=== PATIENT | female | born 1985 | race Caucasian/White ===

== ENCOUNTER 2018-11-03 15:09 | Emergency (ER) | payer MEDICARE, MEDICAID ==
[2018-11-03] MEDS ORDERED: Lidocaine 1% PF 5 ML VIAL ONE (15:27)
[2018-11-03] MEDS ORDERED: cefTRIAXone\\ROCEPHIN 250 MG VIAL ONE (15:27)
[2018-11-03] MEDS ORDERED: Azithromycin 250 MG TAB ONE (15:27)
[2018-11-03 15:48] LABS: Bilirubin Negative (Negative); Blood, Urine Moderate (Negative); Clarity CLEAR (Clear); Glucose, Urine (Dipstick) Negative (Negative); Leukocyte Negative (Negative); Nitrite Negative (Negative); Protein, Urine (Dipstick) Negative (Neg-Trace); Specific Gravity, Urine 1.015 (1.002-1.036); Urobilinogen 0.2 mg/dL (0.2-1.0)
[2018-11-03 15:50] LABS: Bacteria/HPF Rare-Few HPF (None Seen); Hyaline Casts/LPF 0-3 HYALINE CAST LPF (0-3 Hyaline); Pathc Cast-AUWi Flag 0.54 (0-2.49); RBC/HPF 0-3 HPF (0-3); WBC/HPF 0-3 HPF (0-3)
[2018-11-06 00:59] LABS: Chlam.trachomatis by PCR,Urine Not Detected (NotDetected)
== END 2018-11-03 15:50 | disposition home or self-care (01) ==
LOC: ERS 15:09
DX: Z20.2 Contact with and (suspected) exposure to infections with a predominantly sexual mode of transmission (principal); F25.9 Schizoaffective disorder, unspecified; F41.9 Anxiety disorder, unspecified; F17.210 Nicotine dependence, cigarettes, uncomplicated; J45.909 Unspecified asthma, uncomplicated
CPT/HCPCS: 81003; 81015; 87491; 87591; 96372; J0696; J2001

== ENCOUNTER 2019-07-09 10:49 | Emergency (ER) | payer MEDICARE, MEDICAID | END 2019-07-09 12:22 | disposition home or self-care (01) | LOC: ERS 10:49 | DX: S16.1XXA Strain of muscle, fascia and tendon at neck level, initial encounter (principal); S29.012A Strain of muscle and tendon of back wall of thorax, initial encounter; F41.9 Anxiety disorder, unspecified; J45.909 Unspecified asthma, uncomplicated; F31.9 Bipolar disorder, unspecified; F17.210 Nicotine dependence, cigarettes, uncomplicated; V73.6XXA Passenger on bus injured in collision with car, pick-up truck or van in traffic accident, initial encounter; Z79.899 Other long term (current) drug therapy | CPT/HCPCS: 99283 ==

== ENCOUNTER 2019-08-03 07:47 | Emergency (ER) | payer MEDICARE, MEDICAID ==
[2019-08-03] MEDS ORDERED: Acetaminophen 500 MG TAB ONE (09:00)
[2019-08-03] MEDS ORDERED: Diazepam 5 MG TAB ONE (09:02)
--- NOTE | 2019-08-03 11:46 | RAD ---
CERVICAL SPINE THREE VIEWS: HISTORY: Neck pain following an injury at the end of June. FINDINGS: C6, C7 and T1 are obscured on the lateral view. Portions of the C1 and C2 odontoid are obscured on th e AP open-mouth view. No prevertebral soft tissue swelling. No malalignment. IMPRESSION: Limited evaluation of the cervical spine, as above. No significant abnormality in the visualized cerv ical spine. Given neck pain and radiation pain to left shoulder, follow-up non-emergent MRI examination should be considered. POS: [facility]
--- NOTE | 2019-08-03 11:47 | RAD ---
CHEST ONE VIEW PORTABLE: HISTORY: Chest pain following injury at the end of June. COMPARISON: 08/03/2014 FINDINGS: Heart size is normal. Lungs are clear. IMPRESSION: No significant acute intrathoracic disease. POS: [facility]
== END 2019-08-03 09:53 | disposition home or self-care (01) ==
LOC: ERS 07:47
DX: S46.812A Strain of other muscles, fascia and tendons at shoulder and upper arm level, left arm, initial encounter (principal); J45.909 Unspecified asthma, uncomplicated; F41.9 Anxiety disorder, unspecified; F31.9 Bipolar disorder, unspecified; F25.9 Schizoaffective disorder, unspecified; F17.210 Nicotine dependence, cigarettes, uncomplicated; Z79.899 Other long term (current) drug therapy; V49.9XXA Car occupant (driver) (passenger) injured in unspecified traffic accident, initial encounter
CPT/HCPCS: 71045; 72040

== ENCOUNTER 2021-12-13 11:43 | Emergency (ER) | payer MEDICARE, MEDICAID ==
[2021-12-13] MEDS ORDERED: Famotidine/PF 20 mg/2ml Vial ONE (12:22)
[2021-12-13] MEDS ORDERED: diphenhydrAMINE 50 MG/ML VIAL ONE (12:22)
[2021-12-13] MEDS ORDERED: methylPREDNISolone Sod Succ/PF 125 MG/2 ML VIAL ONE (12:22)
[2021-12-13 12:59] LABS: #Eosinphils 0.1 thou/uL (0.0-0.7); #Lymphocytes 1.4 thou/uL (1.20-3.40); #Monocytes 0.3 thou/uL (0.11-0.59); #Neutrophils 13.2 thou/uL (1.40-6.50); %Basophils 0.1 % (0.0-1.0); %Eosinophils 0.4 % (0.0-10.0); %Lymphocytes 9.3 % (21.0-51.0); %Monocytes 2.2 % (0.0-10.0); Hemoglobin 15.4 g/dL (12.0-16.0); Mean Corpuscular HGB CONC 35.3 g/dL (32.0-36.0); Mean Corpuscular Hemoglobin 35.8 pg (27.0-31.0); Mean Platelet Volume 8.7 fL (7.4-10.4); Platelet Count 197 thou/uL (130-400); RBC Distribution Width 11.3 % (11.5-14.5); Red Blood Cell (RBC) Count 4.31 mill/uL (4.20-5.40)
[2021-12-13 13:10] LABS: BHCG - Serum Negative (NEGATIVE); Pregs Control Background? CLEAR/WHITE (CLR/WHITE); Pregs Control Bar Appear? YES (CONTROL BAR)
[2021-12-13 13:21] LABS: ALT (SGPT) 10 U/L (8-55); AST (SGOT) 14 U/L (5-34); Alkaline Phosphatase 53 U/L (40-110); Anion Gap 12 mmol/L (10-20); BUN (Urea Nitrogen) 22 mg/dL (7.0-18.7); Bilirubin, Total 0.9 mg/dL (0.2-1.2); Calc. Creatinine Clearance 0 mL/min (70-130); Calcium 8.7 mg/dL (7.8-10.44); Carbon Dioxide 26 mmol/L (22-29); Chloride 96 mmol/L (98-107); Estimated GFR 94; Globulin 2.4 g/dL (2.4-3.5); Glucose 98 mg/dL (70-105); Potassium 4.1 mmol/L (3.5-5.1); Protein, Total 5.4 g/dL (6.0-8.3); Sodium 130 mmol/L (136-145)
== END 2021-12-13 14:15 | disposition home or self-care (01) ==
LOC: ERS 11:43
DX: L50.0 Allergic urticaria (principal); E11.9 Type 2 diabetes mellitus without complications; F17.210 Nicotine dependence, cigarettes, uncomplicated; Z79.899 Other long term (current) drug therapy
CPT/HCPCS: 36415; 80053; 84703; 85025; 96361; 96374; 96375; J1200; J2930; S0028